=== PATIENT | female | born 1995 | race African-American/Black ===

== ENCOUNTER 2023-05-19 22:57 | Emergency (ER) | payer OTHER ==
[2023-05-19 23:53] LABS: #Monocytes 0.8 thou/uL (0.11-0.59); #Neutrophils 7.2 thou/uL (1.40-6.50); %Basophils 0.1 % (0.0-1.0); %Eosinophils 0.4 % (0.0-10.0); %Monocytes 7.8 % (0.0-10.0); %Neutrophils 73.1 % (42.0-75.0); Hematocrit 29.2 % (36.0-47.0); Hemoglobin 9.5 g/dL (12.0-16.0); Mean Corpuscular HGB CONC 32.5 g/dL (32.0-36.0); Mean Corpuscular Hemoglobin 26.7 pg (27.0-31.0); Platelet Count 255 10x3/uL (130-400); RBC Distribution Width 13.4 % (11.5-14.5); Red Blood Cell (RBC) Count 3.56 mill/uL (4.20-5.40); White Blood Cell (WBC) Count 9.9 10x3/uL (4.8-10.8)
[2023-05-20 00:08] LABS: SARS-CoV-2 NAA Rapid Test Not Detected (NotDetected)
[2023-05-20 00:22] LABS: ALT (SGPT) 16 U/L (8-55); AST (SGOT) 18 U/L (5-34); Albumin 3.7 g/dL (3.5-5.0); Alkaline Phosphatase 136 U/L (40-110); Anion Gap 13 mmol/L (10-20); BUN (Urea Nitrogen) 7 mg/dL (7.0-18.7); Bilirubin, Total 0.2 mg/dL (0.2-1.2); Calc. Creatinine Clearance 0 mL/min (70-130); Carbon Dioxide 19 mmol/L (22-29); Chloride 108 mmol/L (98-107); Estimated GFR 123; Globulin 3.2 g/dL (2.4-3.5); Glucose 136 mg/dL (70-105); Potassium 3.6 mmol/L (3.5-5.1); Protein, Total 6.9 g/dL (6.0-8.3); Sodium 136 mmol/L (136-145)
== END 2023-05-20 00:59 | disposition home or self-care (01) ==
LOC: ERS 22:57
DX: O99.891 Other specified diseases and conditions complicating pregnancy (principal); G51.0 Bell's palsy; Z3A.28 28 weeks gestation of pregnancy
CPT/HCPCS: 36415; 80053; 85025; 93005; 94760